=== PATIENT | male | born 1975 | race Caucasian/White ===

== ENCOUNTER 2022-03-21 13:28 | Emergency (ER) | payer MEDICAID, OTHER ==
[~2022-03-21] VITALS: Ht 182.9 cm; Wt 84.0 kg
[2022-03-21] MEDS ORDERED: zonisamide (13:42)
[2022-03-21 15:03] LABS: BASOPHILS % 0.4 % (0.0-2.0); EOSINOPHILS % 0.6 % (0.0-5.0); HEMATOCRIT. 48.7 % (42.0-52.0); HEMOGLOBIN. 16.7 g/dL (14.0-18.0); LYMPHOCYTES % 16.6 % (20.0-50.0); MEAN CORPUSCULAR VOLUME 90.3 fL (80.0-94.0); MONOCYTES % 8.3 % (2.0-8.0); NEUTROPHILS % 74.1 % (40.0-76.0); RED CELL DISTRIBUTION WIDTH 13.9 % (11.6-14.6)
[2022-03-21 15:11] LABS: CHLORIDE 105 mEq/L (98-107)
[2022-03-21 15:31] LABS: ETHANOL BLOOD < 10 mg/dL; PHOSPHORUS 2.7 mg/dL (2.5-4.9)
[2022-03-21] MEDS ORDERED: ZONISAMIDE 100MG CAPSULE PO ONE (15:45)
[2022-03-21] MEDS ORDERED: VALPROATE SODIUM 1,000 MG in SODIUM CHLORIDE 0.9% 100 ML IV SCH (16:00)
[2022-03-21] MEDS ORDERED: DIVA500T3 MT (16:51)
[2022-03-21 16:55] LABS: MEAN PLATELET VOLUME 7.8 fl (7.4-10.4); PLATELET 322 x1000/uL (130-400)
[2022-03-21 18:20] VITALS: BP 120/76
== END 2022-03-21 18:28 | disposition home or self-care (01) ==
LOC: ER 13:52
DX: G40.909 Epilepsy, unspecified, not intractable, without status epilepticus (principal)
CPT/HCPCS: 36415; 71045; 74176; 80053; 80320; 83690; 83735; 84100; 84443; 85025; 93005; 96365; 99285; J3490; J7050; G0480